=== PATIENT | male | born 1995 ===

== ENCOUNTER 2021-06-06 08:15 | Emergency (ER) | payer SELFPAY ==
[2021-06-06] MEDS ORDERED: Ciprofloxacin 500 MG Tab PO ONE (08:46)
[2021-06-06] MEDS ORDERED: Dexamethasone 4 MG Tab PO ONE (08:46)
[2021-06-06] MEDS ORDERED: cefTRIAXone 1 GM, Lidocaine 1% 2.1 ML IM ONE ×2 (08:47)
== END 2021-06-06 09:49 | disposition home or self-care (01) ==
LOC: EDBD → DL.ED 08:15
DX: N41.0 Acute prostatitis (principal); Z88.0 Allergy status to penicillin
CPT/HCPCS: 36415; 81003; 85025; 86140; 96372; 99284; A9270; J0696; J8540